=== PATIENT | male | born 1990 | race Caucasian/White ===

== ENCOUNTER → 2019-12-06 10:43 | Outpatient (BNVA) | payer BC, SELFPAY | PROVIDERS: Visit Provider Nurse Practitioner Family | DX: S86.912A Strain of unspecified muscle(s) and tendon(s) at lower leg level, left leg, initial encounter (principal); M25.462 Effusion, left knee; X58.XXXA Exposure to other specified factors, initial encounter | CPT/HCPCS: 73562 ==

== ENCOUNTER 2019-12-10 11:24 | Outpatient (CLI) | payer BC, SELFPAY ==
--- NOTE | 2019-12-10 11:45 | MR_ITS ---
WS: [id number] EXAM: MRI OF THE LEFT KNEE DATE OF EXAMINATION: 12/10/2019, 1239 hours COMPARISON: Left knee plain films from 12/06/2019 HISTORY: 29 years old with left knee injury. Segond fracture seen on plain films. Assess for internal derangem ent. TECHNIQUE: Oblique sagittal fat-sat proton density, proton density; coronal proton density and T2 fat sat; axial fat sat proton density FINDINGS: Menisci: The medial meniscus shows slight apical fraying mid body region. A definite tear is not seen . Lateral meniscus is normal in appearance. Cruciates: The anterior cruciate ligament is completely disrupted at the level of the intercondylar i nsertion. Posterior cruciate ligament remains intact. Supporting ligaments: There are findings of a fairly severe grade 2 tear involving the medial collate ral ligament. There appears to be disruption of the superior meniscal capsular strut medially with an area of hemorrhage at the injury site. Lateral collateral ligament, posterior lateral corner are normal in appearance Tendons: The distal quadriceps tendon and infrapatellar tendon are normal in appearance. Cartilaginous surfaces: Cartilaginous surfaces are smooth in all three compartments. No appreciable c hondromalacic change is seen. There is a bone contusion seen in the peripheral medial femoral condyle without fracture line demonst rated. Bony edema with a posterior lateral tibial plateau fracture seen with minimal joint line depre ssion. The No disruption of the proximal tibiofibular synchondrosis. Small impaction fracture seen in the anterior lateral femoral condyle at the junction between the weightbearing and nonweightbearing aspect. There is edema around the knee most prominent posteriorly. Small amount of joint fluid is seen with a suprapatellar plica. The bony fragment noted on plain films is hard to see but is felt to be present along the posterior l ateral tibial plateau. MR/MR knee LT wo con* [id number] IMPRESSION: Posterior tibial plateau fracture with minimal joint line depression. Additiona l compaction fracture injury involving the anterior lateral femoral condyle the junction between the weightbearing and nonweightbearing aspect. Complete disruption of the anterior cruciate ligament. Fairly severe tear medial collateral ligament considered a severe grade 2 injur y. Tearing of the superior meniscal capsular strut attachment along the medial fem oral condyle.
== END 2019-12-10 11:25 | disposition home or self-care (01) ==
LOC: RADSHAW 11:27
PROVIDERS: Visit Provider Nurse Practitioner Family
DX: S86.912A Strain of unspecified muscle(s) and tendon(s) at lower leg level, left leg, initial encounter (principal); S82.142A Displaced bicondylar fracture of left tibia, initial encounter for closed fracture; S72.422A Displaced fracture of lateral condyle of left femur, initial encounter for closed fracture; S83.412A Sprain of medial collateral ligament of left knee, initial encounter; X58.XXXA Exposure to other specified factors, initial encounter
CPT/HCPCS: 73721